=== PATIENT | female | born 1965 | race Caucasian/White ===

== ENCOUNTER 2024-01-06 13:30 | Outpatient (AMB) | payer MEDICAID, SELFPAY ==
[2024-01-06 13:55] VITALS: BP 149/84; PULSE 86; RESP 19; TEMP 36.2; O2SAT 91; BMI 44.2
--- NOTE | 2024-01-06 13:55 | PD.ORTHCLVIS ---
Vital signs 01/06/24 13:55 Height 1.6 m Height Method Stated Weight 113.398 kg Weight Measurement Method Estimated by Patient BMI 44.2 BP 149/84 H Blood Pressure Source Automatic Cuff Blood Pressure Location Left Lower Arm Position Sitting Respiration 19 Pulse 86 Pulse Source Monitor Temp 97.1 F Temp Source Temporal Artery Scan Pulse Oximetry (%) 91 L Oxygen Delivery Method Room Air Med/Allergies Allergies & Medications Allergies No Known Drug Allergies Allergy (Verified 01/06/24 13:56) Medication Reconciliation amlodipine 5 mg tablet 5 mg PO QDAY 09/20/23 [History Confirmed 01/06/24] metoprolol succinate 50 mg tablet,extended release 24 hr 50 mg PO BID 09/20/23 [History Confirmed 01/06/24] Subjective Visit Visit for: follow up visit, knee and injections Immunization / Flu Flu Vaccine in the Last 12 Months: No Flu Vaccine Exclusion Criteria: No Exclusion Criteria History of Present Illness Chief complaint: KNEE INJECTIONS Date of injury / onset of symptoms: FOR YEARS Valarie is a pleasant 57-year-old female with bilateral knee arthritis. The knee pain is worse on the right. She was found to have [id number] arthritis and was referred here. She has not had any anti-inflammatories. She has done well with cortisone injections and would like another one today. Personal History Occupation: UNEMPLOYED Hobbies: NONE Pain Pain level (0-10): 3 Pain duration: COMES AND GOES Pain location: inside (medial) and outside (lateral) Pain quality: sharp and aching Pain timing: night, increases with activity and stairs Associated signs & symptoms: none Ambulatory data Ambulatory device: none Treatments Improvement with previous injections: No Improvement with PT: No Improvement with NSAIDS: no Review of Systems Review of Systems: All systems negative unless otherwise noted in HPI. Exam Exam Patient is in no acute distress and is cooperative with the examination today. Breathing is nonlabored. Patient has a normal mood and affect. Bilateral extremities were evaluated and demonstrates sensation intact to light touch. Palpable pedal pulses are present. No significant edema is present. Bilateral hips were examined. The patient has no pain with log roll of the hips. Internal rotation to 30 degrees and external rotation to 30 degrees is painless. Negative FADIR. Left knee was examined today. The left knee is in reasonable alignment. Range of motion from 0-120 degrees. Knee is stable to varus and valgus as well as AP translation with <5mm. Patient has a negative McMurrays. There is no pain with patellofemoral compression and no crepitus noted. The knee is nontender to palpation. The right knee was also examined. The right knee is in [varus] alignment. Range of motion from [0-115] degrees. Knee is stable to varus and valgus as well as AP translation with <5mm. Patient has a [negative] McMurrays. There is [no] pain with patellofemoral compression and [no] crepitus noted. The knee is [tender] to palpation [medially]. X-rays of the right knee demonstrate complete joint space obliteration and valgus alignment. Significant osteophytes are present Assessment and Plan Problem List (1) Arthritis of knee, right: Status: Acute Plan: Patient is a 57-year-old female with right knee pain and right knee arthritis of significant severity. We discussed nonoperative and operative options. We discussed weight loss, anti-inflammatories, and injections. She had angioedema with a naproxen oral medication before. She would like another cortisone injection today Recommend knee cortisone injection as patient would like to proceed with conservative treatment at this time. The risks and benefits of the procedure were reviewed with the patient and patient gave verbal consent to continue with the procedure. Procedure: performed by Dr. Badillo Using sterile technique the Right knee was thoroughly prepped with alcohol, and approximately 1 cc of Kenalog 40 mg/mL and 4 cc of 1% lidocaine was injected without resistance into the medial tibial femoral joint space. The patient tolerated the procedure. Office Procedures GNS Level of Care Nursing/Assessment Patient Status: Established Patient Nursing Assessment/Reassesment: Medication Reconciliation, Update PMH in EMR and Vital Signs Coordination of Care: Complex Care and Chronic Disease 1-5, Education Complex Pt/Fam, Consent,records obtained, informed consent and Staff clarify orders Established Patient Charge Established Patient Point Assignment: 90 Established Patient Point Charge: EP Level 3 (80-115) Past Medical History Past Medical History Have you ever been diagnosed with any of the following: Respiratory Problems Smoking: No Smoking Cessation Counseling: No Smoking Exposure: No Tobacco Use: No Clubbing: No Exposure to Respiratory Irritants: No Intubation: No
== END 2024-01-06 15:24 | disposition home or self-care (01) ==
LOC: HODSRG 13:30
PROVIDERS: Supervising Provider Orthopaedic Surgery Adult Reconstructive Orthopaedic Surgery; Visit Provider Orthopaedic Surgery Adult Reconstructive Orthopaedic Surgery
DX: M17.11 Unilateral primary osteoarthritis, right knee (principal); M25.561 Pain in right knee
CPT/HCPCS: 20610; 99213; J3301; J3490; G0463

== ENCOUNTER 2024-06-12 14:52 | Outpatient (AMB) | payer MEDICAID, SELFPAY ==
[2024-06-12 15:06] VITALS: BP 134/84; PULSE 86; RESP 17; TEMP 36.3; O2SAT 94; BMI 44.9
--- NOTE | 2024-06-12 15:06 | ORTHONT_ITS ---
Vital signs 06/12/24 15:06 Height 1.6 m Height Method Stated Weight 115 kg Weight Measurement Method Estimated by Patient BMI 44.9 BP 134/84 H Blood Pressure Source Automatic Cuff Blood Pressure Location Right Upper Arm Position Sitting Respiration 17 Pulse 86 Pulse Source Monitor Temp 97.4 F Temp Source Temporal Artery Scan Pulse Oximetry (%) 94 L Oxygen Delivery Method Room Air Med/Allergies Allergies & Medications Allergies No Known Drug Allergies Allergy (Verified 06/12/24 15:08) Medication Reconciliation amlodipine 5 mg tablet 5 mg PO QDAY 09/20/23 [History Confirmed 06/12/24] metoprolol succinate 50 mg tablet,extended release 24 hr 50 mg PO BID 09/20/23 [History Confirmed 06/12/24] Exam Exam Patient is in no acute distress and is cooperative with the examination today. Breathing is nonlabored. Patient has a normal mood and affect. Bilateral extremities were evaluated and demonstrates sensation intact to light touch. Palpable pedal pulses are present. No significant edema is present. Bilateral hips were examined. The patient has no pain with log roll of the hips. Internal rotation to 30 degrees and external rotation to 30 degrees is painless. Negative FADIR. Left knee was examined today. The left knee is in reasonable alignment. Range of motion from 0-120 degrees. Knee is stable to varus and valgus as well as AP translation with <5mm. Patient has a negative McMurrays. There is no pain with patellofemoral compression and no crepitus noted. The knee is nontender to palpation. The right knee was also examined. The right knee is in [varus] alignment. Range of motion from [0-115] degrees. Knee is stable to varus and valgus as well as AP translation with <5mm. Patient has a [negative] McMurrays. There is [no] pain with patellofemoral compression and [no] crepitus noted. The knee is [tender] to palpation [medially]. X-rays of the right knee demonstrate complete joint space obliteration and valgus alignment. Significant osteophytes are present Assessment and Plan Problem List (1) Arthritis of knee, right: Status: Acute Plan: Patient is a 57-year-old female with right knee pain and right knee arthritis of significant severity. We discussed nonoperative and operative options. We discussed weight loss, anti-inflammatories, and injections. She had angioedema with a naproxen oral medication before. She would like another cortisone injection today Recommend knee cortisone injection as patient would like to proceed with conservative treatment at this time. The risks and benefits of the procedure were reviewed with the patient and patient gave verbal consent to continue with the procedure. Procedure: performed by Dr. Badillo Using sterile technique the Right knee was thoroughly prepped with alcohol, and approximately 1 cc of Kenalog 40 mg/mL and 4 cc of 1% lidocaine was injected without resistance into the medial tibial femoral joint space. The patient tolerated the procedure. Office Procedures GNS Level of Care Nursing/Assessment Patient Status: Established Patient Nursing Assessment/Reassesment: Medication Reconciliation, Update PMH in EMR and Vital Signs Coordination of Care: Complex Care and Chronic Disease 1-5, Consent,records obtained, informed consent, Education Simp Pt/Fam, Results/Orders obtained and Staff clarify orders Established Patient Charge Established Patient Point Assignment: 90 Established Patient Point Charge: EP Level 3 (80-115) Medication Given Medication Given Medication Given: Yes Documented Dose Given: 4 Route: Infiitration Medication Given Medication Given Medication Given: Yes Documented Dose Given: 1 Route: Infiitration Office Meds Xylocaine 10 mg/mL (1 %) injection solution Performing Provider: Ladarius Badillo MD Performing Location: [facility] Administered by: Ladarius Badillo MD on 06/12/24 15:19 Dose Route Admin Location Dispensed Lot Number Expiration Date [facility] Generator Mechan[employer] 20 mL Infiltration 20 mL [id number] 07/12/27 01493-881-86 [facility] triamcinolone acetonide 40 mg/mL suspension for injection Performing Provider: Ladarius Badillo MD Performing Location: [facility] Administered by: Ladarius Badillo MD on 06/12/24 15:19 Dose Route Admin Location Dispensed Lot Number Expiration Date [facility] Generator Mechanic 40 mg intra-articular KNEE 1 mL [id number] 08/10/25 4919-7908-73 [facility] [place] Intake Visit Data Collection New Patient or Established: Established Patient (seen at [facility] within 3 years) Reason for Visit:: RT KNEE FU/ REQUESTING RT KNEE INJECTION Seen by Clinical Staff ONLY (RN/MA): No Oncology Physician Assistant Required: No PCP or OBGYN visit in last 3 months: Yes Hx Now: No Do You Feel Safe at Home: Yes Authorities Contacted: N/A Questionairres Past Medical History Past Medical History Have you ever been diagnosed with any of the following: Respiratory Problems Smoking: No Smoking Cessation Counseling: No Smoking Exposure: No Tobacco Use: No Clubbing: No Exposure to Respiratory Irritants: No Intubation: No Subjective Visit Visit for: follow up visit and knee (RIGHT KNEE ) Immunization / Flu Flu Vaccine in the Last 12 Months: No Flu Vaccine Exclusion Criteria: Already Received History of Present Illness Chief complaint: Right knee pain Patient is a morbid obese 4-year-old female with right knee pain. We discussed repeat cortisone injection today. She had good relief with the last injection Personal History Red flag PMH: none Pain Pain level (0-10): 8 Pain duration: 2 MONTHS Pain location: anterior Pain quality: aching Pain timing: increases with activity and stairs Associated signs & symptoms: stiffness Ambulatory data Ambulatory device: none Walking distance (minutes): 10 Treatments Number of previous injections: 1 Improvement with previous injections: Yes Number of Physical Therapy sessions: 0 Improvement with NSAIDS: n/a Review of Systems Review of Systems: All systems negative unless otherwise noted in HPI.
== END 2024-06-12 15:18 | disposition home or self-care (01) ==
LOC: HODSRG 14:52
PROVIDERS: Supervising Provider Orthopaedic Surgery Adult Reconstructive Orthopaedic Surgery; Visit Provider Orthopaedic Surgery Adult Reconstructive Orthopaedic Surgery
DX: M17.11 Unilateral primary osteoarthritis, right knee (principal); M25.562 Pain in left knee; M25.561 Pain in right knee; E66.01 Morbid (severe) obesity due to excess calories; Z68.41 Body mass index [BMI] 40.0-44.9, adult
CPT/HCPCS: 20610; 99213; J3301; J3490; G0463

== ENCOUNTER 2024-10-09 14:13 | Outpatient (AMB) | payer MEDICAID, SELFPAY ==
--- NOTE | 2024-10-09 14:32 | PD.ORTHCLVIS ---
Vital signs 10/09/24 14:33 Height 1.6 m Height Method Measured Weight 115 kg Weight Measurement Method Estimated by Patient BMI 44.9 BP 104/70 Blood Pressure Source Automatic Cuff Blood Pressure Location Left Upper Arm Position Sitting Respiration 18 Pulse 75 Pulse Source Monitor Temp 98.1 F Temp Source Temporal Artery Scan Pulse Oximetry (%) 93 L Oxygen Delivery Method Room Air Med/Allergies Allergies & Medications Allergies No Known Drug Allergies Allergy (Verified 10/09/24 14:35) Medication Reconciliation amlodipine 5 mg tablet 5 mg PO QDAY 09/20/23 [History Confirmed 10/09/24] metoprolol succinate 50 mg tablet,extended release 24 hr 50 mg PO BID 09/20/23 [History Confirmed 10/09/24] Exam Exam Patient is in no acute distress and is cooperative with the examination today. Breathing is nonlabored. Patient has a normal mood and affect. Bilateral extremities were evaluated and demonstrates sensation intact to light touch. Palpable pedal pulses are present. No significant edema is present. Bilateral hips were examined. The patient has no pain with log roll of the hips. Internal rotation to 30 degrees and external rotation to 30 degrees is painless. Negative FADIR. Left knee was examined today. The left knee is in reasonable alignment. Range of motion from 0-120 degrees. Knee is stable to varus and valgus as well as AP translation with <5mm. Patient has a negative McMurrays. There is no pain with patellofemoral compression and no crepitus noted. The knee is nontender to palpation. The right knee was also examined. The right knee is in [varus] alignment. Range of motion from [0-115] degrees. Knee is stable to varus and valgus as well as AP translation with <5mm. Patient has a [negative] McMurrays. There is [no] pain with patellofemoral compression and [no] crepitus noted. The knee is [tender] to palpation [medially]. X-rays of the right knee demonstrate complete joint space obliteration and valgus alignment. Significant osteophytes are present Assessment and Plan Problem List (1) Arthritis of knee, right: Status: Acute Plan: Patient is a 57-year-old female with right knee pain and right knee arthritis of significant severity. We discussed nonoperative and operative options. We discussed weight loss, anti-inflammatories, and injections. She had angioedema with a naproxen oral medication before. She would like another cortisone injection today Recommend knee cortisone injection as patient would like to proceed with conservative treatment at this time. The risks and benefits of the procedure were reviewed with the patient and patient gave verbal consent to continue with the procedure. Procedure: performed by Dr. Badillo Using sterile technique the Right knee was thoroughly prepped with alcohol, and approximately 1 cc of Depo-Medrol 80mg/mL and 4 cc of 0.2% ropivacaine was injected without resistance into the medial tibial femoral joint space. The patient tolerated the procedure. Office Procedures GNS Level of Care Nursing/Assessment Patient Status: Established Patient Nursing Assessment/Reassesment: Medication Reconciliation, Update PMH in EMR and Vital Signs Coordination of Care: Complex Care and Chronic Disease 1-5, Education Complex Pt/Fam, Consent,records obtained, informed consent, Results/Orders obtained and Staff clarify orders Established Patient Charge Established Patient Point Assignment: 95 Established Patient Point Charge: EP Level 3 (80-115) Medication Given Medication Given Medication Given: Yes Documented Dose Given: 1 Route: Infiitration Medication Given Medication Given Medication Given: Yes Documented Dose Given: 4 Route: Infiitration Office Meds methylprednisolone acetate 80 mg/mL suspension for injection Performing Provider: Ladarius Badillo MD Performing Location: [facility] Administered by: Ladarius Badillo MD on 10/09/24 15:49 Dose Route Admin Location Dispensed Lot Number Expiration Date [facility] Sl[employer]aser Slotter Helper 80 mg intra-articular KNEE 1 mL [id number] 08/11/26 [address]-9 [employer] ropivacaine (PF) 2 mg/mL (0.2 %) injection solution Performing Provider: Ladarius Badillo MD Performing Location: [facility] Administered by: Ladarius Badillo MD on 10/09/24 15:49 Dose Route Admin Location Dispensed Lot Number Expiration Date [facility] Sl[employer] Slotter Helper 20 mL Infiltration KNEE 20 mL [id number] 01/11/26 71304-984-22 [facility] Intake Visit Data Collection New Patient or Established: Established Patient (seen at [facility] within 3 years) Reason for Visit:: 3 MONTH F/U RIGHT KNEE PAIN Seen by Clinical Staff ONLY (RN/MA): No Manager Case Management Required: No PCP or OBGYN visit in last 3 months: Yes Hx Now: No Do You Feel Safe at Home: Yes Authorities Contacted: N/A Questionairres Past Medical History Past Medical History Have you ever been diagnosed with any of the following: Respiratory Problems Smoking: No Smoking Cessation Counseling: No Smoking Exposure: No Tobacco Use: No Clubbing: No Exposure to Respiratory Irritants: No Intubation: No Subjective Visit Visit for: follow up visit and knee Immunization / Flu Flu Vaccine in the Last 12 Months: No Flu Vaccine Exclusion Criteria: No Exclusion Criteria History of Present Illness Chief complaint: 3 MONTH KNEE INJECTION F/U Patient is a morbid obese 58-year-old female with right knee pain. We discussed repeat cortisone injection today. She had good relief with the last injection Personal History Red flag PMH: none BMI Counceling provided: Yes Pain Pain level (0-10): 5 Pain duration: 2 MONTHS Pain location: outside (lateral) and anterior Pain quality: aching Pain timing: increases with activity Associated signs & symptoms: none Ambulatory data Ambulatory device: none Walking distance (minutes): 10 Treatments Number of previous injections: 1 Improvement with previous injections: Yes Number of Physical Therapy sessions: 0 Improvement with PT: No Improvement with NSAIDS: no Review of Systems Review of Systems: All systems negative unless otherwise noted in HPI.
[2024-10-09 14:33] VITALS: BP 104/70; PULSE 75; RESP 18; TEMP 36.7; O2SAT 93; BMI 44.9
== END 2024-10-09 14:56 | disposition home or self-care (01) ==
LOC: HODSRG 14:13
PROVIDERS: Supervising Provider Orthopaedic Surgery Adult Reconstructive Orthopaedic Surgery; Visit Provider Orthopaedic Surgery Adult Reconstructive Orthopaedic Surgery
DX: M17.11 Unilateral primary osteoarthritis, right knee (principal); M25.561 Pain in right knee
CPT/HCPCS: 20610; 99213; J1010; J2795; G0463